=== PATIENT | male | born 1955 | race Caucasian/White ===

== ENCOUNTER 2022-06-16 19:19 | Emergency (ER) | payer OTHER, BC | END 2022-06-16 21:49 | disposition home or self-care (01) | LOC: CSHERS 19:19 | DX: S01.01XA Laceration without foreign body of scalp, initial encounter (principal); W01.10XA Fall on same level from slipping, tripping and stumbling with subsequent striking against unspecified object, initial encounter | CPT/HCPCS: 12001; 70450 ==